=== PATIENT | male | born 1950 | race Caucasian/White ===

== ENCOUNTER → 2020-02-16 09:57 | Outpatient (CLI) | payer MEDICARE, SELFPAY ==
[2020-02-17 10:33] LABS: COVID19 Sendout Not Detected (Not Detect)
== END ==
PROVIDERS: Family Provider Family Medicine; PCP Family Medicine; Visit Provider Physician Assistant
DX: Z01.812 Encounter for preprocedural laboratory examination (principal)
CPT/HCPCS: 87635

== ENCOUNTER 2020-02-19 10:03 | Day surgery (SDC) | payer MEDICARE, SELFPAY ==
[2020-02-19] MEDS: PROPARACAINE 0.5% OPHTH SOL 2 DROPS EYE-OP (11:03)
[2020-02-19] MEDS: CATARACT EYE COMPOUND (10 DROPS/SYRINGE) 3 DROPS EYE-OP (11:06)
[2020-02-19 11:18] VITALS: BP 106/57; PULSE 58; RESP 14; TEMP 36.4; O2SAT 98; BMI 31.5
--- NOTE | 2020-02-19 12:26 | P.OP_ITS ---
Operative Date/Time/Diagnoses Pre-op diagnosis: Nuclear Cataract Left eye Post-op diagnosis: same Procedure & Clinicians Same procedure as scheduled: Yes Surgeon: Yuriy Darden Anesthesia Type: MAC +/- and Sedation Operative Notes Procedure in detail: Patient brought to the operating suite. Tetracaine drops placed in the left eye. Patient was prepped and draped in sterile manner. Wire lid speculum was placed in the eye. Betadine drops were placed on the eye. This was irrigated. Lidocaine jelly was placed on the eye. A paracentesis port was created with a side-port blade. 0.1 mL 1% preservative free lidocaine was injected into the anterior chamber. The anterior chamber was deepened with viscoelastic. 2.6 mm keratome was used to create a temporal clear corneal incision. Cystotome and Utrata forceps were used to create continuous tear capsulorrhexis. Balanced salt solution was used to hydro dissect the nucleus. The phacoemulsification handpiece was inserted and the nucleus was removed using the stop and chop technique. The irrigation aspiration handpiece was inserted and the remaining cortex was removed. Anterior chamber was deepened with viscoe lastic. An Pope ZCB00 intraocular lens with a power of 21.0 was injected into the capsular bag. Irrigation aspiration handpiece was inserted and the remaining viscoelastic was removed. Incision was hydrated with balanced salt solution and found to be leak free with pressure with Weck-Tamela sponges. 0.1 mL Vigamox injected anterior chamber. 0.3 mL Kenalog 10 mg was injected subconjunctivally. Lid speculum was removed. The patient left the operating room in excellent condition. Complications: none Post-operative Condition: stable Disposition: same day surgery
--- NOTE | 2020-02-19 12:26 | PM.PREOP ---
Pre-operative Note Interval Note History & Physical reviewed/Exam performed by Physician: Yes Changes to H&P: No
[2020-02-19] MEDS: LIDOCAINE JELLY 2% 5 ML 1 APPLIC TOP (12:45)
[2020-02-19] MEDS: CHONDROIDTIN/SOD HYALURONATE 1.05 ML SYRINGE INTRAOCULA (12:45)
[2020-02-19] MEDS: PHENYLEPHRINE/LIDOCAINE VIAL (OR) 0.2 ML EYE-OP (12:46)
[2020-02-19] MEDS: MOXIFLOXACIN INJ 5 MG/ML VIAL EYE-OP (12:46)
[2020-02-19] MEDS: TRIAMCINOLONE 50 MG/5 ML VIAL INJ (12:46)
[2020-02-19] MEDS: BALANCED SALT IRRIG SOLN NO.2 500 ML, EPINEPHrine 1 MG IRR (12:46)
[2020-02-19] MEDS: TETRACAINE 0.5% OPHTH DROPS 4 ML 2 DROPS EYE-OP (12:46)
[2020-02-19 13:06] VITALS: BP 107/54; PULSE 54; RESP 16; TEMP 36.2; O2SAT 99
[2020-02-19 13:17] VITALS: BP 107/54; PULSE 54; RESP 16; TEMP 36.2; O2SAT 99
== END 2020-02-19 13:17 | disposition home or self-care (01) ==
PROVIDERS: PCP Family Medicine; Referring Provider Ophthalmology; Visit Provider Ophthalmology
PROC: (CPT 66984; principal; 2020-02-19 12:15)
DX: H25.12 Age-related nuclear cataract, left eye (principal); I50.9 Heart failure, unspecified; I48.91 Unspecified atrial fibrillation
CPT/HCPCS: 66984; J0171; J2250; J3010; J3301

== ENCOUNTER → 2020-04-03 13:54 | Outpatient (CLI) | payer MEDICARE, SELFPAY ==
--- NOTE | 2020-04-03 | DI.ECHO.S_ITS ---
[facility] +---------+ : : [address] : : : : [id number] : : : : Phone: [phone] +---------+ Echocardiogram Report + + :Name: NILES GALINDO Study Date: 04/03/2020 Height: 70 in : :[facility] Weight: 246 lb : : Gender: Male BSA: 2.3 m2 : :: 1950 Age: 70 yrs BP: 139/73 mmHg: :Reason For Study: Cardiomyopathy : :Ordering Physician: Jeanette Manuel : :[place] Performed By: Brandie Gongora : :Referring: JEANETTE PETER : + + Interpretation Summary Left ventricular systolic function remains moderately depressed with an estimated ejection fraction of around 45% with global hypokinesis but no obvious focal wall motion abnormality and appears unchanged, perhaps slightly more dynamic compared to the previous study. Left ventricular volumes remain mildly increased with a end-diastolic volume of 111 mL. Wall thickness appears normal. Diastolic function is challenging to assess but could suggest increased filling pressures, perhaps slightly higher compared to the previous study. The right ventricle is normal and unchanged. Pulmonary artery systolic pressure cannot be estimated but the CVP remains around 3 mmHg. Both atria are mild??moderately enlarged and grossly are unchanged from the previous study. There is mild mitral regurgitation that is unchanged but no other significant valvular abnormality. The ascending aorta is mild??moderately enlarged and measures slightly larger compared to the previous study. The patient remains in sinus rhythm, unchanged in the previous study. Procedure: A two-dimensional transthoracic echocardiogram with color flow and Doppler was performed. The study quality was technically adequate. Comparison is made with the echocardiogram of 11/02/2018. The patient was in sinus rhythm with heart rates between 64-75 bpm during the exam. Left Ventricle: The left ventricle is mildly dilated. There is normal left ventricular wall thickness. The estimated left ventricular end diastolic volume is 111 ml. Left ventricular systolic function is moderately reduced. The ejection fraction is estimated to be 40-45%. There is moderate global hypokinesis of the left ventricle. There are no focal wall motion abnormalities. This is unchanged to slightly more dynamic compared to the previous study. Diastolic function could not be accurately assessed due to contradictory data. Right Ventricle: The right ventricle is normal in size and function. This is unchanged compared to the previous study. Atria: The left atrium is moderately dilated. The right atrium is mildly dilated. This is unchanged compared to the previous study. Doppler interrogation and injection of saline echo contrast shows no evidence for an interatrial shunt. Mitral Valve: There is mild mitral annular calcification. The mitral valve leaflets appear normal. There is no evidence of stenosis, fluttering, or prolapse. There is mild mitral regurgitation. This is unchanged compared to the previous study. Aortic Valve: The aortic valve is trileaflet. The aortic valve is slightly calcified. The aortic valve opens well. There is no aortic valve stenosis. No aortic regurgitation is present. Tricuspid Valve: The tricuspid valve is normal in structure and function. There is trace tricuspid regurgitation. Pulmonary artery pressures cannot be estimated because of the lack of a measurable TR jet velocity but the IVC suggests a CVP of around 3 mmHg. Pulmonic Valve: The pulmonic valve is not well seen, but is grossly normal. There is no pulmonic valvular regurgitation. There is no other significant valvular heart disease. Great Vessels: The aortic root is normal size. The ascending aorta is mild- moderately enlarged. This is slightly larger compared to the previous study. The IVC is of normal diameter and collapses greater than 50% with a sniff. This suggests a low right atrial pressure of 3 mm Hg. Pericardium/ Pleura There is no pericardial effusion. There is no pleural effusion. MMode/2D Measurements & Calculations LVIDd: 6.3 cm LVOT diam: 2.5 cm LVIDs: 4.9 cm Ao root diam: 3.7 cm FS: 22.2 % asc Aorta Diam: 3.9 cm EPSS: 2.0 cm IVSd: 0.72 cm LVPWd: 0.86 cm LV lockett. diameter/BSA (cm/m^2): 2.8 LV sys. diameter/BSA (cm/m^2): 2.1 LA A2 area: 29.4 cm2 RA long axis: 6.2 cm LA A4 area: 24.0 cm2 RA area: 24.1 cm2 LA length (vol): 6.0 cm RA vol: 80.0 ml LA vol: 98.9 ml RA : 35.1 ml/m2 LA vol index: 43.4 ml/m2 IVC diam: 1.5 cm RVD1 (basal): 3.8 cm TAPSE: 2.1 cm Doppler Measurements & Calculations Ao V2 max: 127.5 cm/sec LVOT Max Williams: 82.4 cm/sec Ao V2 mean: 90.5 cm/sec LV V1 max P.7 mmHg Ao max P.5 mmHg LV V1 VTI: 16.8 cm Ao mean P.8 mmHg ROSENDO(I,D): 2.9 cm2 Ao V2 VTI: 28.9 cm ROSENDO(V,D): 3.2 cm2 sev ratio: 0.58 ROSENDO indexed to BSA (cm^2/m^2): 1.3 MV E max williams: 72.0 cm/sec PA V2 max: 92.2 cm/sec MV A max williams: 44.0 cm/sec PA V2 mean: 61.7 cm/sec MV E/A: 1.6 PA mean P.8 mmHg Med Peak E' Williams: 5.9 cm/sec PA pr(Accel): 41.3 mmHg E/E' med: 12.2 Lat Peak E' Williams: 8.9 cm/sec E/E' lat: 8.1 E/e' average: 10.1 MV dec time: 0.24 sec SV(LVOT): 83.5 ml Reading Physician:05:29 PM
== END ==
PROVIDERS: PCP Family Medicine; Referring Provider Family Medicine; Visit Provider Specialist
DX: I34.0 Nonrheumatic mitral (valve) insufficiency (principal); I42.6 Alcoholic cardiomyopathy; I77.89 Other specified disorders of arteries and arterioles
CPT/HCPCS: 93306

== ENCOUNTER → 2021-04-01 11:49 | Outpatient (CLI) | payer MEDICARE, SELFPAY ==
--- NOTE | 2021-04-01 11:51 | DI.ECHO.S_ITS ---
[place] +---------+ [facility] +---------+ : : [address] : : : : [id number] : : : : Phone: [phone] : [phone] +---------+ Echocardiogram Report + + :Name: NILES GALINDO Study Date: 04/01/2021 Height: 70 in : :[facility] ReadingLocation: Weight: 215 lb : : Gender: Male BSA: 2.2 m2 : :: 1950 Age: 71 yrs BP: 110/64 mmHg: :Reason For Study: LV DYSFUNCTION : :Ordering Physician: DANIEL, : :ARYA Performed By: Brandie Gongora : :Referring: ARYA SANCHEZ : + + Interpretation Summary This is a limited echocardiogram focused on reassessment of left ventricular systolic ejection fraction and regional wall motion. The left ventricle is borderline enlarged but slightly smaller compared to the previous exam. Left ventricular systolic function is borderline reduced with an estimated ejection fraction of 50 to 55% without any focal wall motion abnormalities and globally appears mildly more dynamic compared to the previous study. The right ventricle grossly appears normal and unchanged from the previous exam. Procedure: A two-dimensional transthoracic echocardiogram with color flow and Doppler was performed in limited views only to assess ejection fraction and wall motion.. The study quality was technically adequate. Comparison is made with the echocardiogram of 11/02/2018. The patient has a paced rhythm. The heart rate ranged between 60 bpm during the study. Left Ventricle: The left ventricle is normal in size. The estimated left ventricular end diastolic volume is 113 ml. Left ventricular wall thickness is borderline increased. Left ventricular systolic function is low normal. The ejection fraction is estimated to be 50-55%. There are no focal wall motion abnormalities. This is mildly more dynamic globally compared to the previous study. Right Ventricle: The right ventricle grossly appears normal in size with probable normal systolic function. This is unchanged compared to the previous study. There is a pacemaker lead in the right ventricle. Atria: The left atrium is severely dilated. The right atrium is severely dilated. Tricuspid Valve: The tricuspid valve is normal in structure and function. There is trace tricuspid regurgitation. Pulmonary artery pressures cannot be estimated because of the lack of a measurable TR jet velocity but the IVC suggests a CVP of around 3 mmHg. Great Vessels: The IVC is of normal diameter and collapses greater than 50% with a sniff. This suggests a low right atrial pressure of 3 mm Hg. Pericardium/ Pleura There is no pericardial effusion. There is no pleural effusion. MMode/2D Measurements & Calculations LVIDd: 5.5 cm LA A2 area: 28.6 cm2 LVIDs: 4.2 cm LA A4 area: 29.4 cm2 FS: 23.8 % LA length (vol): 6.3 cm IVSd: 0.87 cm LA vol: 114.0 ml LVPWd: 1.2 cm LA vol index: 53.0 ml/m2 LV lockett. diameter/BSA (cm/m^2): 2.6 LV sys. diameter/BSA (cm/m^2): 2.0 RA long axis: 6.7 cm RVD1 (basal): 4.1 cm RA area: 30.7 cm2 TAPSE: 1.8 cm RA vol: 119.5 ml RA : 55.5 ml/m2 IVC diam: 1.7 cm Reading Physician:12:49 PM
== END ==
PROVIDERS: PCP Physician Assistant Medical; Referring Provider Physician Assistant Medical; Visit Provider Physician Assistant Medical
DX: I51.9 Heart disease, unspecified (principal); Z95.0 Presence of cardiac pacemaker
CPT/HCPCS: 93307

== ENCOUNTER → 2021-11-23 13:24 | Outpatient (CLI) | payer MEDICARE, SELFPAY ==
[2021-11-23 19:53] LABS: BUN Creatinine Ratio 17.9 (6-22); Blood Urea Nitrogen 17 mg/dL (9-20); Calcium 8.8 mg/dL (8.4-10.2); Carbon Dioxide 30 mmol/L (22-32); Chloride 104 mmol/L (98-107); Estimated Glomerular Filt Rate > 60.0 mL/min (>60); Glucose 104 mg/dL (80-110); HEMOLYSIS 16 (0-50); Magnesium 2.1 mg/dL (1.6-2.3); Potassium 4.1 mmol/L (3.4-5.1); Sodium 140 mmol/L (137-145)
== END ==
PROVIDERS: PCP Physician Assistant Medical; Visit Provider Physician Assistant Medical
DX: I47.2 Ventricular tachycardia (principal)
CPT/HCPCS: 80048; 83735

== ENCOUNTER → 2022-02-03 08:25 | Outpatient (CLI) | payer MEDICARE, SELFPAY ==
[2022-02-03 20:18] LABS: Alanine Aminotransferase 30 IU/L (<50); Albumin 4.2 g/dL (3.5-5.0); Albumin Globulin Ratio 1.5 (1.0-2.8); Alkaline Phosphatase 63 U/L (38-126); Aspartate Aminotransferase 46 IU/L (17-59); BUN Creatinine Ratio 14.4 (6-22); Blood Urea Nitrogen 15 mg/dL (9-20); Calcium 9.1 mg/dL (8.4-10.2); Carbon Dioxide 24 mmol/L (22-32); Chloride 106 mmol/L (98-107); Estimated Glomerular Filt Rate > 60 mL/min (>60); Globulin 2.8 g/dL (1.7-4.1); Glucose 103 mg/dL (80-110); HEMOLYSIS < 15 (0-50); Potassium 4.4 mmol/L (3.4-5.1); Sodium 138 mmol/L (137-145)
[2022-02-03 20:40] LABS: Thyroid Stimulating Hormone 2.71 uIU/mL (0.47-4.68)
[2022-02-05 09:15] LABS: Cholesterol, Total 151 mg/dL (100-199); HDL-Cholesterol 44 mg/dL (>39); LDL Particle 990 nmol/L (<1000); LDL Size 20.5 nm (>20.5); LDL-Cholsterol 88 mg/dL (0-99); LP-IR Score 47 (<=45); Small LDL- Particle 462 nmol/L (<=527); Triglycerides 101 mg/dL (0-149)
== END ==
PROVIDERS: PCP Physician Assistant Medical; Visit Provider Specialist
DX: E03.9 Hypothyroidism, unspecified (principal); E78.00 Pure hypercholesterolemia, unspecified; I48.0 Paroxysmal atrial fibrillation
CPT/HCPCS: 80053; 80061; 83704; 83735; 84443

== ENCOUNTER → 2022-07-22 14:30 | Outpatient (CLI) | payer MEDICARE, SELFPAY ==
[2022-07-22 18:58] LABS: Add Manual Diff / Slide Review NO; Basophils Absolute Auto 100 /uL (0-100); Basophils Percent Auto 0.8 % (0-2); Eosinophils Absolute Auto 400 /uL (0-450); Eosinophils Percent Auto 5.2 % (2-4); Hematocrit 44.6 % (41-53); Hemoglobin 15.1 g/dL (13.5-17.5); Lymphocytes Absolute Auto 2200 /uL (1100-4500); Lymphocytes Percent Auto 30.7 % (25-40); Mean Corpuscular HGB Conc 33.7 % (30-36); Mean Corpuscular Hemoglobin 32.2 PG (26-34); Mean Corpuscular Volume 95.6 fL (80-100); Monocytes Absolute Auto 700 /uL (0-900); Monocytes Percent Auto 9.5 % (3-14); Neutrophils Absolute Auto 3800 /uL (1500-7000); Neutrophils Percent Auto 53.8 % (50-75); Platelet Count 182 X10^3/uL (150-400); Red Blood Cell Count 4.67 X10^6/uL (4.5-5.9); Red Cell Distribution Width 13.3 % (11.6-14.8); White Blood Cell Count 7.1 X10^3/uL (4.5-11.0)
[2022-07-22 19:01] LABS: Alanine Aminotransferase 36 IU/L (<50); Albumin 4.2 g/dL (3.5-5.0); Albumin Globulin Ratio 1.4 (1.0-2.8); Alkaline Phosphatase 62 U/L (38-126); Aspartate Aminotransferase 42 IU/L (17-59); BUN Creatinine Ratio 15.3 (6-22); Bilirubin Total 0.5 mg/dL (0.2-1.3); Blood Urea Nitrogen 15 mg/dL (9-20); Calcium 9.4 mg/dL (8.4-10.2); Carbon Dioxide 31 mmol/L (22-32); Chloride 100 mmol/L (98-107); Estimated Glomerular Filt Rate > 60 mL/min (>60); Glucose 81 mg/dL (80-110); HEMOLYSIS < 15 (0-50); Potassium 4.5 mmol/L (3.4-5.1); Sodium 140 mmol/L (137-145); Total Protein 7.2 g/dL (6.3-8.2)
[2022-07-22 19:30] LABS: Prostate Specific Antigen Scrn 2.58 ng/mL (0.1-4.0)
== END ==
PROVIDERS: PCP Physician Assistant Medical; Visit Provider Physician Assistant Medical
DX: Z00.00 Encounter for general adult medical examination without abnormal findings (principal); Z12.5 Encounter for screening for malignant neoplasm of prostate
CPT/HCPCS: 80053; 85025; G0103

== ENCOUNTER → 2023-12-14 10:47 | Outpatient (CLI) | payer MEDICARE, SELFPAY ==
[2023-12-14 21:13] LABS: Alanine Aminotransferase 30 IU/L (<50); Albumin 4.4 g/dL (3.5-5.0); Albumin Globulin Ratio 1.6 (1.0-2.8); Alkaline Phosphatase 70 U/L (38-126); Aspartate Aminotransferase 39 IU/L (17-59); BUN Creatinine Ratio 19.3 (6-22); Bilirubin Total 1.1 mg/dL (0.2-1.3); Blood Urea Nitrogen 17 mg/dL (9-20); Calcium 9.3 mg/dL (8.4-10.2); Carbon Dioxide 27 mmol/L (22-32); Chloride 105 mmol/L (98-107); Cholesterol 151 mg/dL (140-199); Estimated Glomerular Filt Rate > 60 mL/min (>60); Globulin 2.7 g/dL (1.7-4.1); Glucose 86 mg/dL (80-110); HDL Cholesterol 45 mg/dL (40-60); HEMOLYSIS 17 (0-50); LDL Cholesterol Calculated 86 mg/dL (<100); Potassium 4.2 mmol/L (3.4-5.1); Sodium 137 mmol/L (137-145); Total Protein 7.1 g/dL (6.3-8.2); Triglycerides 101 mg/dL (35-150)
[2023-12-14 21:44] LABS: Thyroid Stimulating Hormone 3.19 uIU/mL (0.47-4.68)
== END ==
PROVIDERS: PCP Physician Assistant Medical; Visit Provider Specialist
DX: E78.00 Pure hypercholesterolemia, unspecified (principal); I48.19 Other persistent atrial fibrillation; I47.29 Other ventricular tachycardia
CPT/HCPCS: 80053; 80061; 83735; 84443

== ENCOUNTER → 2024-01-10 09:08 | Outpatient (CLI) | payer MEDICARE, SELFPAY | PROVIDERS: PCP Physician Assistant Medical; Visit Provider Physician Assistant Medical | DX: R39.13 Splitting of urinary stream (principal) | CPT/HCPCS: 87086 ==

== ENCOUNTER → 2024-01-30 11:49 | Outpatient (CLI) | payer MEDICARE, SELFPAY ==
[2024-01-30 19:38] LABS: Add Manual Diff / Slide Review NO; Basophils Absolute Auto 0 /uL (0-100); Basophils Percent Auto 0.5 % (0-2); Eosinophils Absolute Auto 300 /uL (0-450); Hemoglobin 14.5 g/dL (13.5-17.5); Lymphocytes Absolute Auto 1800 /uL (1100-4500); Lymphocytes Percent Auto 25.4 % (25-40); Mean Corpuscular HGB Conc 34.6 % (30-36); Mean Corpuscular Hemoglobin 33.3 PG (26-34); Mean Corpuscular Volume 96.4 fL (80-100); Monocytes Absolute Auto 600 /uL (0-900); Monocytes Percent Auto 8.4 % (3-14); Neutrophils Absolute Auto 4500 /uL (1500-7000); Neutrophils Percent Auto 61.7 % (50-75); Platelet Count 200 X10^3/uL (150-400); Red Blood Cell Count 4.36 X10^6/uL (4.5-5.9); White Blood Cell Count 7.3 X10^3/uL (4.5-11.0)
[2024-01-30 20:22] LABS: Prostate Specific Antigen Scrn 1.86 ng/mL (0.1-4.0)
== END ==
PROVIDERS: PCP Physician Assistant Medical; Visit Provider Physician Assistant Medical
DX: Z13.0 Encounter for screening for diseases of the blood and blood-forming organs and certain disorders involving the immune mechanism (principal); Z12.5 Encounter for screening for malignant neoplasm of prostate; R39.13 Splitting of urinary stream
CPT/HCPCS: 85025; G0103

== ENCOUNTER → 2024-08-06 13:00 | Outpatient (CLI) | payer MEDICARE, SELFPAY ==
[2024-08-06 19:43] LABS: Add Manual Diff / Slide Review NO; Basophils Absolute Auto 100 /uL (0-100); Basophils Percent Auto 0.8 % (0-2); Eosinophils Absolute Auto 300 /uL (0-450); Eosinophils Percent Auto 4.1 % (2-4); Hematocrit 44.5 % (41-53); Lymphocytes Absolute Auto 2700 /uL (1100-4500); Lymphocytes Percent Auto 32.2 % (25-40); Mean Corpuscular HGB Conc 33.7 % (30-36); Mean Corpuscular Hemoglobin 32.6 PG (26-34); Mean Corpuscular Volume 96.7 fL (80-100); Monocytes Absolute Auto 800 /uL (0-900); Neutrophils Absolute Auto 4400 /uL (1500-7000); Neutrophils Percent Auto 52.9 % (50-75); Platelet Count 229 X10^3/uL (150-400); Red Cell Distribution Width 12.4 % (11.6-14.8); White Blood Cell Count 8.3 X10^3/uL (4.5-11.0)
[2024-08-06 19:45] LABS: Alanine Aminotransferase 34 IU/L (<50); Albumin 4.1 g/dL (3.5-5.0); Albumin Globulin Ratio 1.2 (1.0-2.8); Alkaline Phosphatase 89 U/L (38-126); Aspartate Aminotransferase 102 IU/L (17-59); BUN Creatinine Ratio 17.3 (6-22); Bilirubin Total 0.6 mg/dL (0.2-1.3); Blood Urea Nitrogen 18 mg/dL (9-20); Calcium 9.3 mg/dL (8.4-10.2); Carbon Dioxide 26 mmol/L (22-32); Chloride 103 mmol/L (98-107); Estimated Glomerular Filt Rate > 60 mL/min (>60); Globulin 3.4 g/dL (1.7-4.1); Glucose 89 mg/dL (80-110); HEMOLYSIS 38 (0-50); Potassium 4.2 mmol/L (3.4-5.1); Sodium 134 mmol/L (137-145); Total Protein 7.5 g/dL (6.3-8.2)
== END ==
PROVIDERS: PCP Physician Assistant Medical; Visit Provider Physician Assistant Medical
DX: Z13.0 Encounter for screening for diseases of the blood and blood-forming organs and certain disorders involving the immune mechanism (principal); I10 Essential (primary) hypertension
CPT/HCPCS: 80053; 85025

== ENCOUNTER → 2024-11-15 11:19 | Outpatient (CLI) | payer MEDICARE, OTHER, SELFPAY ==
[2024-11-15 19:37] LABS: Alanine Aminotransferase 33 IU/L (<50); Albumin 4.4 g/dL (3.5-5.0); Albumin Globulin Ratio 1.6 (1.0-2.8); Alkaline Phosphatase 67 U/L (38-126); Aspartate Aminotransferase 45 IU/L (17-59); BUN Creatinine Ratio 19.6 (6-22); Bilirubin Total 0.7 mg/dL (0.2-1.3); Blood Urea Nitrogen 18 mg/dL (9-20); Calcium 9.6 mg/dL (8.4-10.2); Carbon Dioxide 22 mmol/L (22-32); Chloride 104 mmol/L (98-107); Estimated Glomerular Filt Rate > 60 mL/min (>60); Gamma Glutamyl Transpeptidase 31 U/L (15-73); Globulin 2.7 g/dL (1.7-4.1); Glucose 87 mg/dL (80-110); HEMOLYSIS < 15 (0-50); Potassium 4.4 mmol/L (3.4-5.1); Sodium 137 mmol/L (137-145); Total Protein 7.1 g/dL (6.3-8.2)
[2024-11-15 20:02] LABS: TSH w/ Reflex to FT4 3.87 uIU/mL (0.47-4.68)
[2024-11-15 20:22] LABS: Hep C Virus Ab w/Reflex Quant NEGATIVE s/c (NEGATIVE)
== END ==
PROVIDERS: PCP Family Medicine; Visit Provider Physician Assistant Medical
DX: R89.8 Other abnormal findings in specimens from other organs, systems and tissues (principal); E03.9 Hypothyroidism, unspecified; R79.89 Other specified abnormal findings of blood chemistry; I48.91 Unspecified atrial fibrillation; I48.92 Unspecified atrial flutter
CPT/HCPCS: 80053; 82977; 84443; 86803